=== PATIENT | female | born 1965 | race African-American/Black ===

== ENCOUNTER 2019-07-06 11:04 | Emergency (ER) | payer MEDICARE, MEDICAID ==
[~2019-07-06] VITALS: Ht 170.2 cm; Wt 75.0 kg
[~2019-07-06 11:04] MED LIST: ACET-3161; CELEXA; DEPAKOTE; HYDR25TA PO; LISI-604 PO; LISINIPRIL; METF-414 PO; METFORMIN
[2019-07-06 11:13] VITALS: BP 131/89
[2019-07-06] MEDS ORDERED: METHYLPREDNISOLONE SOD SUCC 125 MG/2 ML VIAL IM ONE (12:00)
[2019-07-06] MEDS ORDERED: DIPHENHYDRAMINE 25MG CAPSULE PO ONE (12:00)
== END 2019-07-06 14:00 | disposition home or self-care (01) ==
LOC: ER 13:28
DX: H57.89 Other specified disorders of eye and adnexa (principal); I10 Essential (primary) hypertension; E11.9 Type 2 diabetes mellitus without complications
CPT/HCPCS: 96372; 99283; J2930; Q0163

== ENCOUNTER → 2019-09-17 | Outpatient (CLI) | payer MEDICARE, MEDICAID ==
[~2019-09-17] MED LIST changes: +ALBUTEROL (0.5%) 2.5MG/0.5ML NEB HHN ONE
== END | disposition home or self-care (01) ==
LOC: PF 11:09
PROVIDERS: ATTEND Specialist
DX: J98.11 Atelectasis (principal); F17.200 Nicotine dependence, unspecified, uncomplicated
CPT/HCPCS: 94060; 94727; 94729; J7611

== ENCOUNTER 2020-09-16 00:30 | Emergency (ER) | payer MEDICARE, MEDICAID ==
[~2020-09-16] VITALS: Ht 152.4 cm; Wt 58.0 kg
[~2020-09-16 00:30] MED LIST changes: -ALBUTEROL (0.5%) 2.5MG/0.5ML NEB HHN ONE
[2020-09-16] MEDS ORDERED: ACETAMINOPHEN 325MG TABLET PO ONE (01:15)
[2020-09-16] MEDS ORDERED: HYDROCODONE/ACETAMINOPHEN 5/325MG TABLET PO ONE (02:15)
[2020-09-16 03:12] VITALS: BP 129/74
== END 2020-09-16 03:13 | disposition home or self-care (01) ==
LOC: ER 00:30
DX: S82.831A Other fracture of upper and lower end of right fibula, initial encounter for closed fracture (principal); E78.00 Pure hypercholesterolemia, unspecified; E11.9 Type 2 diabetes mellitus without complications; J44.1 Chronic obstructive pulmonary disease with (acute) exacerbation; I10 Essential (primary) hypertension; Z79.899 Other long term (current) drug therapy; Z98.890 Other specified postprocedural states; Z90.710 Acquired absence of both cervix and uterus; W18.30XA Fall on same level, unspecified, initial encounter; Y93.55 Activity, bike riding; Y92.89 Other specified places as the place of occurrence of the external cause; Y99.8 Other external cause status
CPT/HCPCS: 29515; 73610; 73630; 99284

== ENCOUNTER 2023-02-06 10:21 | Inpatient (IN) | payer MEDICARE, MEDICAID ==
[~2023-02-06] VITALS: Ht 152.4 cm; Wt 60.9 kg
[~2023-02-06 10:21] MED LIST changes: -LISI-604 PO; +LISI20TA31 PO
[2023-02-06] MEDS ORDERED: LIDOCAINE HCL/PF 1% 2ML VIAL ONE (10:46)
[2023-02-06] MEDS ORDERED: SODIUM CHLORIDE 0.9% 1,000 ML IV ONE (11:00)
[2023-02-06 11:57] LABS: BASOPHILS % 0.4 % (0.0-2.0); EOSINOPHILS % 2.5 % (0.0-5.0); HEMATOCRIT. 37.4 % (36.0-48.0); HEMOGLOBIN. 12.4 g/dL (12.0-16.0); LYMPHOCYTES % 42.2 % (20.0-50.0); MEAN CORPUSCULAR HEMOGLOBIN 28.2 pg (28.0-32.0); MEAN CORPUSCULAR VOLUME 84.8 fL (81.0-99.0); MONOCYTES % 6.1 % (2.0-8.0); NEUTROPHILS % 48.8 % (40.0-76.0); PLATELET 233 x1000/uL (130-400); RED BLOOD CELL COUNT 4.41 mill/uL (4.2-5.4); RED CELL DISTRIBUTION WIDTH 13.2 % (11.6-14.6)
[2023-02-06 12:10] LABS: CHLORIDE 102 mEq/L (98-107)
[2023-02-06 12:19] LABS: BETA HYDROXYBUTYRATE 0.1 mMol/L (0.0-0.3)
[2023-02-06 13:25] LABS: BG BASE EXCESS -3.2 mmol/L (-2.0-2.0); BG CARBOXYHEMOGLOBIN 0.6 % (0.5-1.5); BG DEOXYHEMOGLOBIN 4.4 % (0.0-5.0); BG FRACTION INSPIRED OXYGEN 21; BG HCO3 ACT 22.4 mmol/L (22.0-26.0); BG METHEMOGLOBIN 0.3 % (0.0-1.5); BG OXYGEN SATURATION 95.6 % (92.0-98.5); BG OXYHEMOGLOBIN 94.7 % (94.0-97.0); BG PH 7.344 (7.350-7.450); BG PO2 84.3 mmHg (75.0-100.0); BG SAMPLE SITE LEFT RADIAL; BG TOTAL HEMOGLOBIN 12.6 g/dL (12.0-18.0); BG VENT MODE ROOM AIR
[2023-02-06] MEDS ORDERED: INSULIN REGULAR (HUMULIN R) 300UNITS/3ML VIAL IV NR ×2 (14:00→14:45)
[2023-02-06] MEDS ORDERED: DEXTROSE 50% WATER 50ML SYRINGE IV PRN (14:45)
[2023-02-06] MEDS ORDERED: CLONIDINE 0.1MG TABLET PO PRN (14:45)
[2023-02-06] MEDS ORDERED: GUAIFENESIN 200MG/10ML SUGAR FREE UDC PO PRN (14:45)
[2023-02-06] MEDS ORDERED: ACETAMINOPHEN 325MG TABLET PO PRN (14:45)
[2023-02-06] MEDS ORDERED: ONDANSETRON HCL 4MG/2ML INJ IV PRN (14:45)
[2023-02-06] MEDS ORDERED: IPRATROPIUM/ALBUTEROL 0.5-3(2.5)MG/3ML NEB HHN PRN (14:45)
[2023-02-06] MEDS ORDERED: ENOXAPARIN 40MG/0.4ML SYR SUBCUT SCH (16:00)
[2023-02-06 18:00] VITALS: BP 139/87
[2023-02-06] MEDS: BLOOD SUGAR DIAGNOSTIC STRIP TEST SCH ×2 (18:00→22:30)
[2023-02-06] MEDS: INSULIN LISPRO 100 UNITS/ML SUBCUT SCH ×2 (18:23→22:40)
[2023-02-06 19:17] LABS: CHLORIDE 110 mEq/L (98-107)
[2023-02-06 19:36] VITALS: BP 124/55
[2023-02-06] MEDS: FAMOTIDINE 20MG TABLET PO SCH (22:30)
[2023-02-06 23:36] VITALS: BP 116/40
[2023-02-07 03:36] VITALS: BP 108/82
[2023-02-07] MEDS: BLOOD SUGAR DIAGNOSTIC STRIP TEST SCH ×2 (06:07→11:50)
[2023-02-07 06:18] LABS: BASOPHILS % 0.3 % (0.0-2.0); EOSINOPHILS % 2.7 % (0.0-5.0); HEMATOCRIT. 37.6 % (36.0-48.0); HEMOGLOBIN. 12.4 g/dL (12.0-16.0); LYMPHOCYTES % 48.2 % (20.0-50.0); MEAN CORPUSCULAR HEMOGLOBIN 27.9 pg (28.0-32.0); MEAN CORPUSCULAR VOLUME 84.7 fL (81.0-99.0); MEAN PLATELET VOLUME 8.5 fl (7.4-10.4); MONOCYTES % 4.9 % (2.0-8.0); NEUTROPHILS % 43.9 % (40.0-76.0); PLATELET 238 x1000/uL (130-400); RED BLOOD CELL COUNT 4.43 mill/uL (4.2-5.4); RED CELL DISTRIBUTION WIDTH 13.5 % (11.6-14.6)
[2023-02-07 06:26] LABS: CHLORIDE 112 mEq/L (98-107)
[2023-02-07 06:40] LABS: HDL CHOLESTEROL 67 mg/dL (40-59); LDL CHOLESTEROL 46 mg/dL (5-100)
[2023-02-07 08:00] VITALS: BP 126/77
[2023-02-07] MEDS: INSULIN LISPRO 100 UNITS/ML SUBCUT SCH ×2 (08:09→12:53)
[2023-02-07] MEDS: FAMOTIDINE 20MG TABLET PO SCH (08:36)
[2023-02-07] MEDS ORDERED: DIPH25CA83 MT (11:04)
[2023-02-07] MEDS ORDERED: CHOL400D7 MT (11:04)
[2023-02-07] MEDS ORDERED: ATOR20TA65 MT (11:04)
[2023-02-07] MEDS ORDERED: OXYC-582 MT (11:04)
[2023-02-07] MEDS ORDERED: EZET-55 MT (11:04)
[2023-02-07] MEDS ORDERED: EMPA25TA MT (11:04)
[2023-02-07] MEDS ORDERED: DIPH25TA23 MT (11:04)
[2023-02-07] MEDS ORDERED: INSU300I3 SQ (11:04)
[2023-02-07] MEDS ORDERED: LOSA50TA41 MT (11:04)
[2023-02-07] MEDS ORDERED: OMEP-265 MT (11:04)
[2023-02-07] MEDS ORDERED: UMEC1DIS INH (11:04)
[2023-02-07] MEDS ORDERED: TRAZ300T11 MT (11:04)
[2023-02-07] MEDS ORDERED: CARI250T MT (11:04)
[2023-02-07] MEDS ORDERED: ALPR2TAB2 MT (11:04)
[2023-02-07 12:00] VITALS: BP 136/67
[2023-02-07 14:48] VITALS: BP 136/67
== END 2023-02-07 15:55 | disposition home or self-care (01) | DRG 637 ==
LOC: ER 11:09 → 3WST 13:46 → EDBEDREQSVC 13:59 → EDBEDREQTM 13:59 → EDBEDREQ 13:59
PROVIDERS: ADMIT Internal Medicine; ATTEND Internal Medicine
DX: E11.65 Type 2 diabetes mellitus with hyperglycemia (principal); G93.41 Metabolic encephalopathy; G47.00 Insomnia, unspecified; F32.A Depression, unspecified; F43.10 Post-traumatic stress disorder, unspecified; J44.9 Chronic obstructive pulmonary disease, unspecified; M19.90 Unspecified osteoarthritis, unspecified site; E78.00 Pure hypercholesterolemia, unspecified; I10 Essential (primary) hypertension; H53.8 Other visual disturbances; Z87.891 Personal history of nicotine dependence; Z90.710 Acquired absence of both cervix and uterus; Z91.199 Patient's noncompliance with other medical treatment and regimen due to unspecified reason; Z79.4 Long term (current) use of insulin
CPT/HCPCS: 36415; 36600; 71045; 80048; 80053; 80061; 82010; 82375; 82805; 82962; 83036; 84484; 85025; 93005; 93970; 97162; 99285; J1650; J1815; J3490; J7030

== ENCOUNTER 2023-03-03 22:05 | Emergency (ER) | payer MEDICARE, MEDICAID ==
[~2023-03-03] VITALS: Ht 152.4 cm; Wt 65.0 kg
[~2023-03-03 22:05] MED LIST changes: +ALPR2TAB2 MT; +ATOR20TA65 MT; +CARI250T MT; +CHOL400D7 MT; +DIPH25CA83 MT; +DIPH25TA23 MT; +EMPA25TA MT; +EZET-55 MT; +INSU300I3 SQ; +LOSA50TA41 MT; +OMEP-265 MT; +OXYC-582 MT; +TRAZ300T11 MT; +UMEC1DIS INH
[2023-03-03 22:11] VITALS: BP 136/92
[2023-03-03 22:53] LABS: CLARITY URINE CLEAR (CLEAR); COLOR URINE YELLOW (YELLOW); KETONES URINE NEGATIVE (NEGATIVE); LEUKOCYTE ESTERASE URINE NEGATIVE (NEGATIVE); NITRITE URINE NEGATIVE (NEGATIVE); OCCULT BLOOD URINE 2+ (NEGATIVE); PH URINE 6.5 (4.5-8.0); PROTEIN URINE NEGATIVE (NEGATIVE); UROBILINOGEN URINE 0.2 E.U./dL (0.2-1.0)
[2023-03-03 22:55] LABS: BASOPHILS % 0.4 % (0.0-2.0); HEMATOCRIT. 39.2 % (36.0-48.0); LYMPHOCYTES % 48.8 % (20.0-50.0); MEAN CORPUSCULAR HEMOGLOBIN 28.1 pg (28.0-32.0); MEAN CORPUSCULAR VOLUME 84.5 fL (81.0-99.0); MEAN PLATELET VOLUME 8.1 fl (7.4-10.4); MONOCYTES % 4.4 % (2.0-8.0); NEUTROPHILS % 44.4 % (40.0-76.0); PLATELET 221 x1000/uL (130-400); RED BLOOD CELL COUNT 4.64 mill/uL (4.2-5.4); RED CELL DISTRIBUTION WIDTH 13.7 % (11.6-14.6)
[2023-03-03 23:06] LABS: CHLORIDE 100 mEq/L (98-107)
== END 2023-03-04 01:16 | disposition left against medical advice (07) ==
LOC: ER 22:05
DX: Z53.21 Procedure and treatment not carried out due to patient leaving prior to being seen by health care provider (principal)
CPT/HCPCS: 36415; 80053; 81003; 82962; 85025; 99281

== ENCOUNTER 2023-05-04 19:51 | Emergency (ER) | payer MEDICARE, MEDICAID ==
[~2023-05-04] VITALS: Ht 152.4 cm; Wt 67.4 kg
[2023-05-04 20:07] VITALS: BP 123/77; PULSE 94; RESP 17; TEMP 97.6; O2SAT 98
[2023-05-04] MEDS ORDERED: DEXA0.5E3 MT (21:33)
== END 2023-05-04 21:40 | disposition home or self-care (01) ==
LOC: ER 19:51
DX: K12.0 Recurrent oral aphthae (principal); J44.9 Chronic obstructive pulmonary disease, unspecified; E11.9 Type 2 diabetes mellitus without complications; I10 Essential (primary) hypertension; Z90.710 Acquired absence of both cervix and uterus; Z98.51 Tubal ligation status; Z79.899 Other long term (current) drug therapy
CPT/HCPCS: 99281

== ENCOUNTER 2023-09-18 13:27 | Emergency (ER) | payer MEDICARE, MEDICAID ==
[~2023-09-18] VITALS: Ht 152.4 cm; Wt 74.0 kg
[~2023-09-18 13:27] MED LIST changes: +DEXA0.5E3 MT
[2023-09-18 13:58] VITALS: BP 127/83; PULSE 94; RESP 18; TEMP 98.5; O2SAT 98
[2023-09-18] MEDS ORDERED: FLUORESCEIN SODIUM 1MG/STRIP LEFTEYE ONE (14:15)
[2023-09-18] MEDS ORDERED: TETRACAINE 0.5% OPHTH DROPS 4ML LEFTEYE ONE (14:15)
[2023-09-18] MEDS ORDERED: TETRACAINE 0.5% OPHTH DROPS 4ML LEFTEYE NR (16:49)
[2023-09-18] MEDS ORDERED: FLUORESCEIN SODIUM 1MG/STRIP LEFTEYE NR (16:49)
[2023-09-18] MEDS ORDERED: [UNRECOGNIZED DRUG - CODE] MC (17:01)
[2023-09-18] MEDS ORDERED: OCUFLX LEFTEYE (17:01)
== END 2023-09-18 18:01 | disposition home or self-care (01) ==
LOC: ER 13:27
DX: S00.12XA Contusion of left eyelid and periocular area, initial encounter (principal); J44.1 Chronic obstructive pulmonary disease with (acute) exacerbation; E11.9 Type 2 diabetes mellitus without complications; I10 Essential (primary) hypertension; Z79.899 Other long term (current) drug therapy; Z98.890 Other specified postprocedural states; Z98.51 Tubal ligation status
CPT/HCPCS: 70486; 99284

== ENCOUNTER 2023-10-31 11:51 | Emergency (ER) | payer MEDICARE, MEDICAID ==
[~2023-10-31] VITALS: Ht 167.6 cm; Wt 91.0 kg
[~2023-10-31 11:51] MED LIST changes: +OCUFLX LEFTEYE; +[UNRECOGNIZED DRUG - CODE] MC
[2023-10-31 11:57] VITALS: O2SAT 98
[2023-10-31 12:22] LABS: CLARITY URINE TURBID (CLEAR); COLOR URINE RED (YELLOW); GLUCOSE URINE 3+ (NEGATIVE); KETONES URINE NEGATIVE (NEGATIVE); LEUKOCYTE ESTERASE URINE 2+ (NEGATIVE); NITRITE URINE NEGATIVE (NEGATIVE); OCCULT BLOOD URINE 3+ (NEGATIVE); PH URINE 5.5 (4.5-8.0); PROTEIN URINE 3+ (NEGATIVE); SPECIFIC GRAVITY URINE 1.024 (1.005-1.030); UROBILINOGEN URINE 0.2 E.U./dL (0.2-1.0)
[2023-10-31 13:10] LABS: BACTERIA URINE 1+; RBC URINE TNTC /hpf (0-2); SQUAMOUS EPITHELIAL CELL URINE FEW /lpf (RARE/1+); WBC URINE 50-100 /hpf (0-2); YEAST URINE NONE SEEN
[2023-10-31] MEDS ORDERED: CEFP100S5 MT ×2 (13:46)
[2023-10-31 14:11] LABS: BASOPHILS % 0.2 % (0.0-2.0); EOSINOPHILS % 0.3 % (0.0-5.0); HEMATOCRIT. 38.9 % (36.0-48.0); MEAN CORPUSCULAR HEMOGLOBIN 27.9 pg (28.0-32.0); MEAN CORPUSCULAR HGB CONC 33.5 g/dL (31.0-37.0); MEAN CORPUSCULAR VOLUME 83.2 fL (81.0-99.0); MEAN PLATELET VOLUME 7.8 fl (7.4-10.4); MONOCYTES % 3.9 % (2.0-8.0); NEUTROPHILS % 76.6 % (40.0-76.0); PLATELET 312 x1000/uL (130-400); RED BLOOD CELL COUNT 4.68 mill/uL (4.2-5.4); RED CELL DISTRIBUTION WIDTH 15.6 % (11.6-14.6); WHITE BLOOD COUNT 9.4 x1000/uL (4.5-11.0)
[2023-10-31 14:27] LABS: ALANINE AMINOTRANSFERASE 21 IU/L (10-49); ALBUMIN 4.2 g/dL (3.2-4.8); ASPARTATE AMINOTRANSFERASE 16 IU/L (<34); BILIRUBIN TOTAL 0.4 mg/dL (0.1-1.0); CALCIUM 9.4 mg/dL (8.7-10.4); CARBON DIOXIDE 30 mEq/L (21-32); CHLORIDE 109 mEq/L (98-107); CREATININE 1.3 mg/dL (0.6-1.0); GLUCOSE 159 mg/dL (70-105); POTASSIUM 4.4 mEq/L (3.5-5.1); PROTEIN TOTAL 7.6 g/dL (6.0-8.3); SODIUM 143 mEq/L (136-145); UREA NITROGEN BLOOD 22 mg/dL (9-23)
[2023-10-31] MEDS ORDERED: CEFP200T13 MT (14:32)
[2023-10-31 15:18] VITALS: BP 128/83; PULSE 104; RESP 18; TEMP 98.7
== END 2023-10-31 15:20 | disposition home or self-care (01) ==
LOC: ER 11:51
DX: N39.0 Urinary tract infection, site not specified (principal); I10 Essential (primary) hypertension; E11.9 Type 2 diabetes mellitus without complications; J44.1 Chronic obstructive pulmonary disease with (acute) exacerbation; Z79.899 Other long term (current) drug therapy; Z98.890 Other specified postprocedural states; Z98.51 Tubal ligation status; Z90.710 Acquired absence of both cervix and uterus
CPT/HCPCS: 36415; 80053; 81003; 81025; 85025; 87077; 87186; 99283

== ENCOUNTER 2024-06-24 09:07 | Emergency (ER) | payer MEDICARE, MEDICAID ==
[~2024-06-24] VITALS: Ht 167.6 cm; Wt 85.0 kg
[~2024-06-24 09:07] MED LIST changes: +CEFP200T13 MT
[2024-06-24 09:27] VITALS: O2SAT 100
[2024-06-24 09:46] LABS: BASOPHILS % 0.3 % (0.0-2.0); EOSINOPHILS % 2.3 % (0.0-5.0); HEMATOCRIT. 41.4 % (36.0-48.0); HEMOGLOBIN. 13.2 g/dL (12.0-16.0); LYMPHOCYTES % 35.4 % (20.0-50.0); MEAN CORPUSCULAR HGB CONC 31.9 g/dL (31.0-37.0); MEAN CORPUSCULAR VOLUME 84.6 fL (81.0-99.0); MEAN PLATELET VOLUME 7.8 fl (7.4-10.4); MONOCYTES % 8.3 % (2.0-8.0); NEUTROPHILS % 53.7 % (40.0-76.0); PLATELET 231 x1000/uL (130-400); RED BLOOD CELL COUNT 4.89 mill/uL (4.2-5.4); WHITE BLOOD COUNT 4.3 x1000/uL (4.5-11.0)
[2024-06-24 09:52] LABS: CHLORIDE 106 mEq/L (98-107); POTASSIUM 4.3 mEq/L (3.5-5.1); SODIUM 139 mEq/L (136-145)
[2024-06-24 09:53] LABS: CARBON DIOXIDE 26 mEq/L (21-32)
[2024-06-24 09:54] LABS: CALCIUM 9.4 mg/dL (8.7-10.4)
[2024-06-24 09:58] LABS: CREATININE 1.5 mg/dL (0.6-1.0); GLUCOSE 190 mg/dL (70-105); UREA NITROGEN BLOOD 17 mg/dL (9-23)
[2024-06-24 09:59] LABS: TROPONIN I HIGH SENSITIVITY 7 ng/L (3.0-34)
[2024-06-24] MEDS ORDERED: NIRM1TAB8 PO (10:11)
[2024-06-24 10:22] VITALS: BP 141/80; PULSE 78; RESP 18; TEMP 36.94740; O2SAT 100
== END 2024-06-24 10:23 | disposition home or self-care (01) ==
LOC: ER 09:29
DX: U07.1 COVID-19 (principal); E11.9 Type 2 diabetes mellitus without complications; I10 Essential (primary) hypertension; J44.1 Chronic obstructive pulmonary disease with (acute) exacerbation; Z79.899 Other long term (current) drug therapy; Z98.51 Tubal ligation status; Z98.890 Other specified postprocedural states; Z90.710 Acquired absence of both cervix and uterus
CPT/HCPCS: 36415; 80048; 84484; 85025; 93005; 99284

== ENCOUNTER 2024-07-13 19:38 | Emergency (ER) | payer MEDICARE, MEDICAID ==
[~2024-07-13] VITALS: Ht 152.4 cm; Wt 70.0 kg
[~2024-07-13 19:38] MED LIST changes: +NIRM1TAB8 PO
[2024-07-13 19:54] VITALS: TEMP 98.2; O2SAT 100
[2024-07-13 19:56] VITALS: BP 111/77; PULSE 77; RESP 14; O2SAT 98
== END 2024-07-14 00:25 | disposition left against medical advice (07) ==
LOC: ER 19:38
DX: N64.4 Mastodynia (principal); Z53.21 Procedure and treatment not carried out due to patient leaving prior to being seen by health care provider

== ENCOUNTER 2024-08-03 14:24 | Emergency (ER) | payer MEDICARE, MEDICAID ==
[~2024-08-03] VITALS: Ht 152.4 cm; Wt 70.3 kg
[2024-08-03 14:38] VITALS: BP 126/80; PULSE 98; RESP 18; TEMP 98.1; O2SAT 96; O2SAT 99
[2024-08-03] MEDS ORDERED: SODIUM CHLORIDE 0.9% 1,000 ML IV ONE (15:15)
[2024-08-03 16:00] LABS: BASOPHILS % 0.6 % (0.0-2.0); EOSINOPHILS % 1.2 % (0.0-5.0); HEMATOCRIT. 40.5 % (36.0-48.0); HEMOGLOBIN. 12.9 g/dL (12.0-16.0); LYMPHOCYTES % 48.6 % (20.0-50.0); MEAN CORPUSCULAR HEMOGLOBIN 27.1 pg (28.0-32.0); MEAN CORPUSCULAR HGB CONC 31.8 g/dL (31.0-37.0); MEAN PLATELET VOLUME 8.4 fl (7.4-10.4); MONOCYTES % 4.7 % (2.0-8.0); NEUTROPHILS % 44.9 % (40.0-76.0); PLATELET 259 x1000/uL (130-400); RED BLOOD CELL COUNT 4.77 mill/uL (4.2-5.4)
[2024-08-03 16:03] LABS: CHLORIDE 102 mEq/L (98-107); POTASSIUM 4.9 mEq/L (3.5-5.1); SODIUM 132 mEq/L (136-145)
[2024-08-03 16:04] LABS: CALCIUM 9.3 mg/dL (8.7-10.4); CARBON DIOXIDE 26 mEq/L (21-32); PROTHROMBIN TIME 11.5 sec (9.6-11.0)
[2024-08-03 16:09] LABS: CREATININE 1.5 mg/dL (0.6-1.0)
[2024-08-03 16:10] LABS: UREA NITROGEN BLOOD 18 mg/dL (9-23)
[2024-08-03 16:11] LABS: ALANINE AMINOTRANSFERASE 30 IU/L (10-49); ALBUMIN 4.1 g/dL (3.2-4.8); ASPARTATE AMINOTRANSFERASE 21 IU/L (<34)
[2024-08-03 16:12] LABS: BILIRUBIN TOTAL 0.3 mg/dL (0.1-1.0); PROTEIN TOTAL 6.8 g/dL (6.0-8.3); TROPONIN I HIGH SENSITIVITY 8 ng/L (3.0-34)
[2024-08-03 16:24] LABS: BILIRUBIN DIRECT < 0.1 mg/dL (<=3.0)
[2024-08-03 16:26] LABS: GLUCOSE 609 mg/dL (70-105)
[2024-08-03 17:20] LABS: BETA HYDROXYBUTYRATE 0.2 mMol/L (0.0-0.3)
[2024-08-03] MEDS ORDERED: INSULIN LISPRO 100 UNITS/ML SUBCUT NR (17:45)
== END 2024-08-03 20:12 | disposition left against medical advice (07) ==
LOC: ER 14:47
DX: E11.65 Type 2 diabetes mellitus with hyperglycemia (principal); I10 Essential (primary) hypertension; J44.9 Chronic obstructive pulmonary disease, unspecified; Z79.899 Other long term (current) drug therapy; Z90.710 Acquired absence of both cervix and uterus; Z79.84 Long term (current) use of oral hypoglycemic drugs
CPT/HCPCS: 99285; 71045; 80076; 80048; 82010; 83690; 85025; 85610; 84484; 36415; 93005; J7030

== ENCOUNTER 2024-09-17 16:11 | Emergency (ER) | payer MEDICARE, MEDICAID ==
[~2024-09-17] VITALS: Ht 162.6 cm; Wt 65.0 kg
[2024-09-17 16:42] VITALS: O2SAT 100
[2024-09-17 16:43] VITALS: BP 142/101; PULSE 90; RESP 16; TEMP 98.4; O2SAT 100
[2024-09-17] MEDS ORDERED: P50 MT (16:48)
== END 2024-09-17 17:11 | disposition home or self-care (01) ==
LOC: ER 16:11
DX: R21 Rash and other nonspecific skin eruption (principal); I10 Essential (primary) hypertension; J44.9 Chronic obstructive pulmonary disease, unspecified; E11.9 Type 2 diabetes mellitus without complications; Z79.899 Other long term (current) drug therapy; Z90.710 Acquired absence of both cervix and uterus; Z79.84 Long term (current) use of oral hypoglycemic drugs
CPT/HCPCS: 99283

== ENCOUNTER 2024-10-10 10:31 | Emergency (ER) | payer MEDICARE, MEDICAID ==
[~2024-10-10] VITALS: Ht 152.4 cm; Wt 65.0 kg
[~2024-10-10 10:31] MED LIST changes: +P50 MT
[2024-10-10 10:42] VITALS: PULSE 78; O2SAT 98
[2024-10-10 10:50] VITALS: BP 114/76; RESP 16; TEMP 98.9; O2SAT 99
[2024-10-10] MEDS ORDERED: HYDR-4001 MT (11:52)
== END 2024-10-10 12:06 | disposition home or self-care (01) ==
LOC: ER 10:31
DX: S92.511A Displaced fracture of proximal phalanx of right lesser toe(s), initial encounter for closed fracture (principal); J44.9 Chronic obstructive pulmonary disease, unspecified; I10 Essential (primary) hypertension; E11.9 Type 2 diabetes mellitus without complications; Z79.899 Other long term (current) drug therapy; Z90.710 Acquired absence of both cervix and uterus; W22.01XA Walked into wall, initial encounter; Y93.89 Activity, other specified; Y92.89 Other specified places as the place of occurrence of the external cause; Y99.8 Other external cause status
CPT/HCPCS: 73630; 99283

== ENCOUNTER 2024-10-13 14:07 | Emergency (ER) | payer MEDICARE, MEDICAID ==
[~2024-10-13] VITALS: Ht 152.4 cm; Wt 68.0 kg
[~2024-10-13 14:07] MED LIST changes: +HYDR-4001 MT
[2024-10-13 14:18] VITALS: O2SAT 97
[2024-10-13] MEDS: ACETAMINOPHEN 325MG TABLET PO ONE (16:49)
[2024-10-13 17:38] VITALS: BP 116/81; PULSE 73; RESP 16; TEMP 37.00296; O2SAT 97
== END 2024-10-13 17:39 | disposition home or self-care (01) ==
LOC: ER 14:07
DX: B34.9 Viral infection, unspecified (principal); N39.0 Urinary tract infection, site not specified; J44.9 Chronic obstructive pulmonary disease, unspecified; I10 Essential (primary) hypertension; E11.9 Type 2 diabetes mellitus without complications; Z79.899 Other long term (current) drug therapy; Z90.710 Acquired absence of both cervix and uterus; Z98.51 Tubal ligation status; Z98.890 Other specified postprocedural states
CPT/HCPCS: 71045; 99283

== ENCOUNTER 2024-11-20 23:31 | Emergency (ER) | payer MEDICARE, MEDICAID ==
[~2024-11-20] VITALS: Ht 152.4 cm; Wt 69.8 kg
[2024-11-21 00:01] VITALS: O2SAT 100
[2024-11-21] MEDS ORDERED: BACITRACIN ZINC OINT UDPKT TOP ONE (00:45)
[2024-11-21] MEDS ORDERED: LIDOCAINE HCL/PF 1% 10 MG/ML 5ML VIAL INFIL ONE (00:45)
[2024-11-21] MEDS ORDERED: IBUP-2029 MT (02:08)
[2024-11-21] MEDS ORDERED: SULF1TAB48 MT (02:08)
[2024-11-21] MEDS: IBUPROFEN 600MG TABLET PO ONE (02:15)
[2024-11-21 03:05] VITALS: BP 126/78; PULSE 78; RESP 18; TEMP 36.89184; O2SAT 98
== END 2024-11-21 04:13 | disposition home or self-care (01) ==
LOC: ER 23:31
DX: L03.012 Cellulitis of left finger (principal); M79.645 Pain in left finger(s); J44.9 Chronic obstructive pulmonary disease, unspecified; E11.9 Type 2 diabetes mellitus without complications; K21.9 Gastro-esophageal reflux disease without esophagitis; Z90.710 Acquired absence of both cervix and uterus; Z79.899 Other long term (current) drug therapy; Z79.84 Long term (current) use of oral hypoglycemic drugs
CPT/HCPCS: 99283; 10060; J3490; J2003

== ENCOUNTER 2025-02-02 16:51 | Emergency (ER) | payer MEDICARE, MEDICAID ==
[~2025-02-02] VITALS: Ht 152.4 cm; Wt 64.0 kg
[~2025-02-02 16:51] MED LIST changes: +IBUP-2029 MT; +SULF1TAB48 MT
[2025-02-02 17:09] VITALS: BP 146/79; TEMP 36.8; O2SAT 98
[2025-02-02 17:21] VITALS: PULSE 95; RESP 18; O2SAT 99
[2025-02-02] MEDS: ACETAMINOPHEN 500MG TABLET PO ONE (18:58)
== END 2025-02-02 19:41 | disposition home or self-care (01) ==
LOC: ER 16:51
DX: M79.641 Pain in right hand (principal); E11.9 Type 2 diabetes mellitus without complications; I10 Essential (primary) hypertension; J44.9 Chronic obstructive pulmonary disease, unspecified; M19.90 Unspecified osteoarthritis, unspecified site; Z79.84 Long term (current) use of oral hypoglycemic drugs; Z79.899 Other long term (current) drug therapy; Z90.710 Acquired absence of both cervix and uterus
CPT/HCPCS: 73130; 99283

== ENCOUNTER 2025-02-18 00:38 | Emergency (ER) | payer MEDICARE, MEDICAID ==
[~2025-02-18] VITALS: Ht 165.1 cm; Wt 64.0 kg
[2025-02-18 00:46] VITALS: O2SAT 99
[2025-02-18 01:13] VITALS: BP 122/80; PULSE 91; RESP 18; TEMP 36.8; O2SAT 98
[2025-02-18] MEDS ORDERED: AMOXICILLIN/POTASSIUM CLAVULANATE 875/125MG TAB PO ONE (03:00)
[2025-02-18] MEDS ORDERED: ACETAMINOPHEN 325MG TABLET PO ONE (03:00)
== END 2025-02-18 03:33 | disposition left against medical advice (07) ==
LOC: ER 00:38
DX: S61.256A Open bite of right little finger without damage to nail, initial encounter (principal); Z53.21 Procedure and treatment not carried out due to patient leaving prior to being seen by health care provider; Y04.1XXA Assault by human bite, initial encounter; Y93.89 Activity, other specified; Y92.89 Other specified places as the place of occurrence of the external cause; Y99.8 Other external cause status

== ENCOUNTER 2025-03-19 15:25 | Emergency (ER) | payer MEDICARE, MEDICAID ==
[~2025-03-19] VITALS: Ht 152.4 cm; Wt 65.0 kg
[2025-03-19 15:30] VITALS: O2SAT 98
[2025-03-19 15:34] VITALS: BP 141/78; PULSE 76; RESP 16; TEMP 36.9; O2SAT 100
[2025-03-19] MEDS ORDERED: IBUPROFEN 600MG TABLET PO ONE (20:15)
[2025-03-19] MEDS ORDERED: TRAMADOL 50MG TABLET PO ONE (20:15)
== END 2025-03-19 21:00 | disposition left against medical advice (07) ==
LOC: ER 15:25
DX: K08.89 Other specified disorders of teeth and supporting structures (principal); Z53.21 Procedure and treatment not carried out due to patient leaving prior to being seen by health care provider

== ENCOUNTER 2025-10-23 13:51 | Emergency (ER) | payer OTHER, MEDICARE, MEDICAID ==
[~2025-10-23] VITALS: Ht 152.4 cm; Wt 61.0 kg
[~2025-10-23 13:51] MED LIST changes: +IBUP-1455 MT; -IBUP-2029 MT; +NIRM1TAB11 PO; -NIRM1TAB8 PO
[2025-10-23 14:20] VITALS: O2SAT 100
[2025-10-23] MEDS: LIDOCAINE 5% PATCH TOP STA (15:13)
[2025-10-23] MEDS: KETOROLAC 30MG/ML VIAL IM ONE (15:13)
[2025-10-23] MEDS: CYCLOBENZAPRINE 10MG TABLET PO ONE (15:13)
[2025-10-23] MEDS ORDERED: LIDO700A30 TP (16:21)
[2025-10-23] MEDS ORDERED: CYCL10TA21 MT (16:21)
[2025-10-23] MEDS ORDERED: IBUP-1455 MT (16:21)
[2025-10-23 16:41] VITALS: BP 118/70; PULSE 80; RESP 15; TEMP 36.8; O2SAT 99
== END 2025-10-23 16:43 | disposition home or self-care (01) ==
LOC: ER 14:33
DX: M54.2 Cervicalgia (principal); M54.50 Low back pain, unspecified; E11.9 Type 2 diabetes mellitus without complications; I10 Essential (primary) hypertension; J45.909 Unspecified asthma, uncomplicated; Z79.84 Long term (current) use of oral hypoglycemic drugs; Z79.899 Other long term (current) drug therapy; Z90.710 Acquired absence of both cervix and uterus; V43.52XA Car driver injured in collision with other type car in traffic accident, initial encounter; Y92.410 Unspecified street and highway as the place of occurrence of the external cause; Y93.89 Activity, other specified; Y99.8 Other external cause status
CPT/HCPCS: 99284; 72040; 72100; 96372; J1885